=== PATIENT | female | born 1965 | race Caucasian/White ===

== ENCOUNTER 2017-06-23 15:07 | Day surgery (SDC) | payer OTHER ==
[2017-06-23 15:31] VITALS: BP 121/78; PULSE 75; RESP 20; TEMP 98.2; O2SAT 100
--- NOTE | 2017-06-23 17:52 | RADRPT ---
EXAM DATE/TIME: 06/23/2017 00:00 [facility] COMPARISON : No previous studies available for comparison. INDICATIONS : UFE CONSULT OBJECTIVE: Temperature: 98.2 Heart Rate: 75 Blood Pressure: 121/78 Respiratory: 20 Oximetry: 100 The patient has a roughly one year history of increasingly severe hemorrhage associated with known mu ltiple uterine fibroids. The patient has not been anemic. She has little in the way of bulk related s ymptoms. An ultrasound examination was performed at [facility]. I did not review that study myself, however the report indicates multiple masses of varying sizes throughout the uterus. No adnex al abnormalities. The patient has undergone recent Pap smear and endometrial biopsy performed by Dr. Richardson and these were normal. Treatment options were discussed with Dr. Richardson and I also discussed ris ks, benefits and alternatives to uterine fibroid embolization procedure with the patient. I believe s he is an appropriate candidate for the procedure. She is tentatively scheduled for July 05. Thank you very much to Dr. Urena for asking us to assist in the care of this pleasant woman. Bebo De Souza MD on June 23, 2017 at 17:46 Board Certified Radiologist. This report was verified electronically.
== END 2017-06-23 16:50 | disposition home or self-care (01) ==
LOC: HROP 15:07 → HRIP 15:08 → HROP 16:50
PROVIDERS: ATTEND Obstetrics & Gynecology
DX: D25.1 Intramural leiomyoma of uterus (principal); N92.1 Excessive and frequent menstruation with irregular cycle

== ENCOUNTER 2017-07-05 06:12 | Day surgery (SDC) | payer OTHER ==
[2017-07-05] VITALS (12 sets, daily range): BP systolic 133–181; BP diastolic 73–108; PULSE 65–75; RESP 16–20; TEMP 97.2–98.1; O2SAT 96–99
[~2017-07-05] VITALS: Ht 154.9 cm; Wt 49.0 kg
[2017-07-05] MEDS ORDERED: IODIXANOL 320 MG/ML 50 ML VIAL (for RAD SPEC) I-ARTERIAL ONE (06:13)
[2017-07-05] MEDS ORDERED: NORE0.3513 PO (06:54)
[2017-07-05] MEDS ORDERED: RANI150T PO (06:54)
[2017-07-05] MEDS ORDERED: OMEP20TA93 PO (06:54)
[2017-07-05] MEDS ORDERED: SIMV40TA PO (06:54)
[2017-07-05] MEDS ORDERED: VITA200013 (06:54)
[2017-07-05] MEDS ORDERED: BIOTCAP PO (06:54)
[2017-07-05] MEDS ORDERED: VITA250T3 PO (06:54)
[2017-07-05] MEDS ORDERED: CETI10CH CHEW (06:54)
[2017-07-05] MEDS ORDERED: MAGN500T5 PO (06:54)
[2017-07-05] MEDS ORDERED: FLUT1SPR21 EACH NARE (06:54)
[2017-07-05] MEDS ORDERED: ceFAZolin 2 GM PREMIX 50 ML IV SCH (07:00)
[2017-07-05] MEDS: SODIUM CHLOR 0.9% 1000 ML INJ 1,000 ML IV SCH ×2 (07:00→15:08)
[2017-07-05] MEDS ORDERED: DIAZEPAM 10 MG TAB PO SCH (07:00)
[2017-07-05] MEDS ORDERED: ONDANSETRON HCL 4 MG/2 ML VIAL IV PUSH SCH (07:00)
[2017-07-05] MEDS ORDERED: KETOROLAC TROMETHAMINE 30 MG/ML (IVP) VIAL IV PUSH SCH (07:00)
[2017-07-05 07:30] LABS: AUTOMATED NEUTROPHIL # 6.9 TH/MM3 (1.8-7.7); BASOPHIL # 0.1 TH/MM3 (0-0.2); BASOPHIL % 0.8 % (0.0-2.0); EOSINOPHIL # 0.6 TH/MM3 (0-0.4); EOSINOPHIL % 5.4 % (0.0-4.0); HEMATOCRIT 42.9 % (35.0-46.0); HEMOGLOBIN 14.7 GM/DL (11.6-15.3); LYMPH % 20.1 % (9.0-44.0); LYMPHOCYTE # 2.1 TH/MM3 (1.0-4.8); MEAN CELL VOLUME 91.4 FL (80.0-100.0); MEAN CORPUSCULAR HEMOGLOBIN 31.4 PG (27.0-34.0); MEAN CORPUSCULAR HGB CONC 34.3 % (32.0-36.0); MEAN PLATELET VOLUME 9.2 FL (7.0-11.0); MONO % 7.4 % (0.0-8.0); MONOCYTE # 0.8 TH/MM3 (0-0.9); NEUT % 66.3 % (16.0-70.0); PLATELET COUNT 221 TH/MM3 (150-450); RED BLOOD COUNT 4.69 MIL/MM3 (4.00-5.30); WHITE BLOOD COUNT 10.4 TH/MM3 (4.0-11.0)
[2017-07-05 07:41] LABS: INTERNATIONAL NORMALIZED RATIO 1.2 RATIO; PROTHROMBIN TIME - PATIENT 12.1 SEC (9.8-11.6)
[2017-07-05 07:43] LABS: BICARBONATE 26.1 MEQ/L (21.0-32.0); CALCIUM 8.9 MG/DL (8.5-10.1); CREATININE 0.61 MG/DL (0.50-1.00)
[2017-07-05] MEDS ORDERED: MIDAZOLAM HCL 2 MG/2 ML VIAL ONE (07:45)
[2017-07-05] MEDS ORDERED: ceFAZolin 2 GM in NS 100 ML IV SCH (07:45)
[2017-07-05] MEDS ORDERED: fentaNYL CITRATE 250 MCG/5 ML AMP ONE (07:46)
[2017-07-05] MEDS ORDERED: HYDROmorphone HCL PF 2 MG/ML VIAL ONE (10:05)
[2017-07-05] MEDS ORDERED: ACETAMINOPHEN 325 MG TAB PO PRN ×2 (10:15→11:30)
[2017-07-05] MEDS ORDERED: NALOXONE HCL 0.4 MG/ML AMP IV PUSH PRN ×2 (10:15→11:30)
[2017-07-05] MEDS ORDERED: diphenhydrAMINE HCL 50 MG/ML VIAL IV PUSH PRN (10:15)
[2017-07-05] MEDS ORDERED: diphenhydrAMINE HCL 25 MG CAP PO PRN (10:15)
[2017-07-05] MEDS ORDERED: ONDANSETRON HCL 4 MG/2 ML VIAL IV PUSH PRN (10:15)
[2017-07-05] MEDS: LEVOFLOXACIN 500 MG PREMIX INJ 100 ML IV SCH (11:00)
[2017-07-05] MEDS: HYDROmorphone HCL PCA 6 MG/30 ML IV SCH ×2 (11:13→21:40)
[2017-07-05] MEDS ORDERED: TEMAZEPAM 15 MG CAP PO PRN (11:30)
[2017-07-05] MEDS ORDERED: MAGNESIUM HYDROXIDE SUSP 30 ML CUP PO PRN (11:30)
[2017-07-05] MEDS ORDERED: ONDANSETRON HCL 4 MG/2 ML VIAL IVP PRN (11:30)
[2017-07-05] MEDS ORDERED: SODIUM CHLORIDE 0.9% FLUSH 10 ML FLUSH IV FLUSH PRN (11:30)
--- NOTE | 2017-07-05 11:42 | HHI.HP ---
HPI Service [facility] Hospitalists Primary Care Physician Paul Hill D.O. Admission Diagnosis Chief Complaint: dysfunctional uterine bleeding Travel History International Travel<30 Days: No Contact w/Intl Traveler <30 Da: No Traveled to Known Affected Are: No History of Present Illness Patient is a pleasant 51-year-old female with history of hyperlipidemia, GERD, chronic tobacco use, and dysfunctional uterine bleeding due to fibroids. Patient underwent uterine artery embolization today in the interventional radiology department performed by Dr. Bebo De Souza. Overnight observation on the medical service was requested for symptom management. Review of Systems Constitutional: DENIES: Diaphoretic episodes, Fatigue, Fever, Weight gain, Weight loss, Chills, Dizziness, Change in appetite, Night Sweats Endocrine: COMPLAINS OF: Abnorml menstrual pattern, DENIES: Heat/cold intolerance, Polydipsia, Polyuria, Polyphagia Eyes: DENIES: Blurred vision, Diplopia, Eye inflammation, Eye pain, Vision loss , Photosensitivity, Double Vision Ears, nose, mouth, throat: DENIES: Tinnitus, Hearing loss, Vertigo, Nasal discharge, Oral lesions, Throat pain, Hoarseness, Ear Pain, Running Nose, Epistaxis, Sinus Pain, Toothache, Odynophagia Respiratory: DENIES: Apneas, Cough, Snoring, Wheezing, Hemoptysis, Sputum production, Shortness of breath Cardiovascular: DENIES: Chest pain, Palpitations, Syncope, Dyspnea on Exertion , PND, Lower Extremity Edema, Orthopnea, Claudication Gastrointestinal: DENIES: Abdominal pain, Black stools, Bloody stools, BRB per rectum, Constipation, Diarrhea, GERD, Nausea, Reflux, Vomiting, Difficulty Swallowing, Anorexia Genitourinary: COMPLAINS OF: Abnormal vaginal bleeding, DENIES: Dysmenorrhea, Dyspareunia, Urinary frequency, Urinary incontinence, Urgency, Hematuria, Dysuria, Nocturia Musculoskeletal: DENIES: Joint pain, Muscle aches, Stiffness, Joint Swelling, Back pain, Neck pain Integumentary: DENIES: Abnormal pigmentation, Pruritus, Rash, Nail changes, Breast masses, Breast skin changes, Nipple discharge Hematologic/lymphatic: DENIES: Bruising, Lymphadenopathy Immunologic/allergic: DENIES: Eczema, Urticaria Neurologic: DENIES: Abnormal gait, Headache, Localized weakness, Paresthesias, Seizures, Speech Problems, Tremor, Poor Balance Psychiatric: DENIES: Anxiety, Confusion, Mood changes, Depression, Hallucinations, Agitation, Suicidal Ideation, Homicidal Ideation, Delusions, History of Bipolar, History of Schizophrenia Past Family Social History Past Medical History 1) dysfunctional uterine bleeding secondary to uterine fibroids 2) GERD 3) hyperlipidemia 4) allergic rhinitis 5) tobaccoism Past Surgical History 1) breast lumpectomy 2) EGD 3) surgical correction of jaw fracture 4) surgical treatment of patellar fracture Reported Medications Reported Meds & Active Scripts Active Reported Biotin 5 Mg Cap 5 Mg PO Magnesium Gluconate 27 Mg (500 Mg) Tab 500 Mg PO DAILY Vitamin C (Ascorbic Acid) 250 Mg Tab 500 Mg PO Cetirizine (Cetirizine HCl) 10 Mg Chew 10 Mg CHEW DAILY Vitamin D (Cholecalciferol) 2,000 Unit Cap Clarispray Nasal [place] (Fluticasone Nasal [place]) 50 Mcg/Act [place] 1 [place] EACH NARE BID Juana-35 (Norethindrone) 0.35 Mg Tab 1 Tab PO DAILY Ranitidine (Ranitidine HCl) 150 Mg Tab 150 Mg PO BID Omeprazole 20 Mg Tab 20 Mg PO BID Simvastatin 40 Mg Tab 40 Mg PO HS Allergies: Coded Allergies: Sulfa (Sulfonamide Antibiotics) (Verified Allergy, Severe, Flu like symptoms, 07/05/17) Family History Noncontributory Social History - Patient is a current smoker - Patient denies alcohol use - Patient denies use of illicit street drugs Physical Exam Vital Signs Vital Signs Date Time Temp Pulse Resp B/P (MAP) Pulse Ox O2 Delivery O2 Flow Rate FiO2 07/05/17 11:13 16 07/05/17 11:00 68 16 159/102 (121) 98 07/05/17 10:35 68 16 161/101 (121) 98 07/05/17 10:20 68 16 163/102 (122) 98 07/05/17 10:05 69 16 168/103 (124) 98 07/05/17 09:50 97.9 71 16 181/108 (132) 98 07/05/17 07:01 Room Air 07/05/17 06:43 98.1 72 20 140/88 (105) 99 Physical Exam GENERAL: This is a well-nourished, well-developed patient, in no apparent distress. SKIN: No rashes, ecchymoses or lesions. Cool and dry. HEAD: Atraumatic. Normocephalic. No temporal or scalp tenderness. EYES: Pupils equal round and reactive. Extraocular motions intact. No scleral icterus. No injection or drainage. ENT: Nose without bleeding, purulent drainage or septal hematoma. Throat without erythema, tonsillar hypertrophy or exudate. Uvula midline. Airway patent. NECK: Trachea midline. No JVD or lymphadenopathy. Supple, nontender, no meningeal signs. CARDIOVASCULAR: Regular rate and rhythm without murmurs, gallops, or rubs. RESPIRATORY: Clear to auscultation. Breath sounds equal bilaterally. No wheezes , rales, or rhonchi. GASTROINTESTINAL: Abdomen soft, non-tender, nondistended. No hepato-splenomegaly , or palpable masses. No guarding. MUSCULOSKELETAL: Extremities without clubbing, cyanosis, or edema. No joint tenderness, effusion, or edema noted. No calf tenderness. Negative Homans sign bilaterally. NEUROLOGICAL: Awake and alert. Cranial nerves II through XII intact. Motor and sensory grossly within normal limits. Five out of 5 muscle strength in all muscle groups. Normal speech. Laboratory Laboratory Tests Test 07/05/17 07:00 White Blood Count 10.4 Red Blood Count 4.69 Hemoglobin 14.7 Hematocrit 42.9 Mean Corpuscular Volume 91.4 Mean Corpuscular Hemoglobin 31.4 Mean Corpuscular Hemoglobin Concent 34.3 Red Cell Distribution Width 13.0 Platelet Count 221 Mean Platelet Volume 9.2 Neutrophils (%) (Auto) 66.3 Lymphocytes (%) (Auto) 20.1 Monocytes (%) (Auto) 7.4 Eosinophils (%) (Auto) 5.4 Basophils (%) (Auto) 0.8 Neutrophils # (Auto) 6.9 Lymphocytes # (Auto) 2.1 Monocytes # (Auto) 0.8 Eosinophils # (Auto) 0.6 Basophils # (Auto) 0.1 CBC Comment DIFF FINAL Differential Comment Prothrombin Time 12.1 Prothromb Time International Ratio 1.2 Activated Partial Thromboplast Time 25.0 Blood Urea Nitrogen 14 Creatinine 0.61 Random Glucose 86 Calcium Level 8.9 Sodium Level 141 Potassium Level 3.8 Chloride Level 107 Carbon Dioxide Level 26.1 Anion Gap 8 Estimat Glomerular Filtration Rate 103 Result Diagram: 07/05/17 0700 07/05/17 0700 Caprini VTE Risk Assessment Caprini VTE Risk Assessment: No/Low Risk (score <= 1) Caprini Risk Assessment Model Point Value = 1 Point Value = 2 Point Value = 3 Point Value = 5 Age 41-60 Minor surgery BMI > 25 kg/m2 Swollen legs Varicose veins or History of unexplained or recurrent spontaneous Oral contraceptives or hormone replacement Sepsis (< 1 month) Serious lung disease, including pneumonia (< 1 month) Abnormal pulmonary function Acute myocardial infarction Congestive heart failure (< 1 month) History of inflammatory bowel disease Medical patient at bed rest Age 61-74 Arthroscopic surgery Major open surgery (> 45 min) Laparoscopic surgery (> 45 min) Malignancy Confined to bed (> 72 hours) Immobilizing plaster cast Central venous access Age >= 75 History of VTE Family history of VTE Factor V Leiden Prothrombin [id number] Lupus anticoagulant Anticardiolipin antibodies Elevated serum homocysteine Heparin-induced thrombocytopenia Other congenital or acquired thrombophilia Stroke (< 1 month) Elective arthroplasty Hip, pelvis, or leg fracture Acute spinal cord injury (< 1 month) Prophylaxis Regimen Total Risk Factor Score Risk Level Prophylaxis Regimen 0-1 Low Early ambulation 2 Moderate Order ONE of the following: *Sequential Compression Device (SCD) *Heparin 5000 units SQ BID 3-4 Higher Order ONE of the following medications: *Heparin 5000 units SQ TID *Enoxaparin/Lovenox 40 mg SQ daily (WT < 150 kg, CrCl > 30 mL/min) *Enoxaparin/Lovenox 30 mg SQ daily (WT < 150 kg, CrCl > 10-29 mL/min) *Enoxaparin/Lovenox 30 mg SQ BID (WT < 150 kg, CrCl > 30 mL/min) AND/OR *Sequential Compression Device (SCD) 5 or more Highest Order ONE of the following medications: *Heparin 5000 units SQ TID (Preferred with Epidurals) *Enoxaparin/Lovenox 40 mg SQ daily (WT < 150 kg, CrCl > 30 mL/min) *Enoxaparin/Lovenox 30 mg SQ daily (WT < 150 kg, CrCl > 10-29 mL/min) *Enoxaparin/Lovenox 30 mg SQ BID (WT < 150 kg, CrCl > 30 mL/min) AND *Sequential Compression Device (SCD) Assessment and Plan Problem List: (1) DUB (dysfunctional uterine bleeding) ICD Codes: N93.8 - Other specified abnormal uterine and vaginal bleeding Status: Acute Plan: - Patient underwent uterine artery embolization performed (07/05/17) by interventional radiology, Dr. Bebo De Souza. - Overnight observation as requested by the medical team for symptom management - Will obtain repeat CBC in a.m. 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 07/06 - norco/diluadid prn pain - DVT prophylaxis - supportive care - anticipate discharge to home 07/06/17 (2) GERD (gastroesophageal reflux disease) ICD Codes: K21.9 - Gastro-esophageal reflux disease without esophagitis Status: Chronic Plan: - continue ranitidine and PPI (3) Hyperlipidemia ICD Codes: E78.5 - Hyperlipidemia, unspecified Status: Chronic Plan: - continue statin therapy (4) Tobacco abuse ICD Codes: Z72.0 - Tobacco use Status: Chronic Plan: - Pt counselled on importance smoking cessation Problem Qualifiers (1) GERD (gastroesophageal reflux disease): Qualified Codes: K21.9 - Gastro-esophageal reflux disease without esophagitis (2) Hyperlipidemia: Qualified Codes: E78.5 - Hyperlipidemia, unspecified Umesh Joe DO Jul 05, 2017 11:42
[2017-07-05] MEDS: LEVOFLOXACIN 500 MG TAB PO SCH (13:43)
--- NOTE | 2017-07-05 14:58 | EKG ---
Date Performed: 07/05/2017 Time Performed: 11:48:09 PTAGE: 51 years EKG: Sinus rhythm NORMAL ECG NO PREVIOUS TRACING DOCTOR: Jian Cao Interpretating Date/Time 07/05/2017 14:56:54
[2017-07-05] MEDS: KETOROLAC TROMETHAMINE 30 MG/ML (IVP) VIAL IVP SCH ×2 (15:00→20:22)
[2017-07-05] MEDS: KETOROLAC TROMETHAMINE 10 MG TAB PO SCH ×2 (15:07→20:15)
[2017-07-05] MEDS: PCA - TOTAL MG DILAUDID DELIVERED PER SHIFT OTHER SCH ×2 (15:08→21:41)
--- NOTE | 2017-07-05 16:34 | RADRPT ---
EXAM DATE/TIME: 07/05/2017 08:08 [facility] COMPARISON: No previous studies available for comparison. INDICATIONS : Patient with a history of uterine fibroid tumors. MEDICAL HISTORY : Intramural leiomyoma of uterus SURGICAL HISTORY : None ENCOUNTER: Initial ACUITY: 1 month PAIN SCORE: 0/10 FLUORO TIME: 23.9 minutes IMAGE SERIES: 15 ACCESS SITE: Right Femoral artery SEDATION TIME: 90 minutes CONTRAST: 1.) 120 cc Visipaque (iodixanol) MEDICATION(S): 1.) 4 mg midazolam (Versed) IV 2.) 250 mcg fentanyl (Sublimaze) IV Prophylactic antibiotics were administered with appropriate pre-procedure timing. DEVICE(S): 1.) Bilateral uterine artery 355-500 PVA 2.) Bilateral uterine artery Gelfoam 3.) Right common femoral artery Starclose PROCEDURE : 1. Ultrasound-guided puncture of the right common femoral artery access site. 2. Angiography of the right common femoral artery access site prior to closure device. 3. Conscious sedation with continuous EKG and Oximetry monitoring. 4. Percutaneous closure of the right common femoral artery access site. 5. non-selective aortic catheterization and aortography 6. selective catheterization, left uterine artery 7. left uterine arteriography 8. Transcatheter embolization. 9. Followup arteriography post embolization, left internal iliac artery 10. Selective catheterization, right uterine artery 11. Selective right uterine arteriography 12. Followup arteriography postembolization, right uterine artery TECHNIQUE: The risks, benefits and alternatives to uterine artery embolization were explained to the patient in detail, and lay terms and verbal and written informed consent was obtained. The patient was placed kumar pine on the angiography table. The right groin was prepped in sterile fashion. Full sterile technique was used, including cap, mask, sterile gloves and gown and a large sterile sheet. Hand hygiene and 2 % chlorhexidine and/or betadine/alcohol prep was utilized per protocol for cutaneous antisepsis. The skin and subcutaneous tissues were infiltrated with lidocaine solution. Under direct ultrasound garry nce, micropuncture access was accomplished and the right common femoral artery and a 4 Wallisian vascula r sheath was placed. Sterile U/S probe cover and sterile U/S gel was utilized. The ultrasound images depicting access guidance were saved and stored to PACS for permanent record. A 4 Wallisian Omni flush catheter was inserted and positioned in the low abdominal aorta. Digital subtra ction pelvic arteriography was performed. The Omni Flush catheter was used to select over the aortic bifurcation and was manipulated down into the contralateral left internal iliac. With the aid of road mapping guidance, an angled Glidewire was manipulated into the left uterine artery. A 4 Wallisian Cobra catheter followed without difficulty and was positioned in the inferior horizontal portion of the ut erine artery. Subselective left uterine arteriography was performed. Embolization was accomplished us ing 350-500 PVA particles to complete occlusion of the vessel. Followup arteriography performed in the internal iliac revealed complete occlusion of the uterine artery with good preservation of flow i n the other anterior division branches. Attention was then turned to catheterization of the ipsilateral right internal iliac. The internal il iac artery was selectively evaluated and no right uterine artery is identified arising from the pelvi c vessels. For this reason, the Omni Flush catheter was reinserted and manipulated into the upper abd ominal aorta. Digital subtraction abdominal aortography was performed. The uterine artery was found t o arise from the upper abdominal aorta just below level of the right renal artery. The uterine artery was selectively catheterized and evaluated with DSA. Right uterine artery embolization was accomplis hed in a similar fashion and a followup arteriography revealed an excellent result with total occlusi on of the vessel and no complication. Sheath arteriography was performed to evaluate the right common femoral artery for arteriotomy closur e. The sheath was removed and the arteriotomy was closed with the Starclose device. The patient wilber ated the procedure well and was taken to the recovery area in good stable condition. FINDINGS: The abdominal aorta and iliacs are widely patent. Widely patent renal arteries are present bilaterall y. The left uterine artery was found to arise in standard fashion from the anterior division of the l eft internal iliac artery. The right uterine artery was found to arise from the upper abdominal aorta just below level of the right renal artery. No gonadal feeders were identified on either side. Embol ization was accomplished bilaterally as described in detail above. CONCLUSION: Uncomplicated bilateral uterine artery embolization for symptomatic fibroids as described in detail above. Bebo De Souza MD on July 05, 2017 at 16:24 Board Certified Radiologist. This report was verified electronically.
[2017-07-05] MEDS ORDERED: ENALAPRILAT 1.25 MG/ML VIAL IV PUSH PRN (18:00)
[2017-07-05] MEDS: FAMOTIDINE 20 MG TAB PO SCH (20:14)
[2017-07-05] MEDS: PANTOPRAZOLE SOD 20 MG DELAYED RELEASE TAB PO SCH (20:15)
[2017-07-05] MEDS: SODIUM CHLORIDE 0.9% FLUSH 10 ML FLUSH IV FLUSH SCH (21:00)
[2017-07-05] MEDS ORDERED: PRAVASTATIN SOD 80 MG TAB PO SCH (21:00)
[2017-07-06] VITALS: BP 160/69; PULSE 75; RESP 16; TEMP 97.2; O2SAT 94
[2017-07-06] MEDS: SODIUM CHLOR 0.9% 1000 ML INJ 1,000 ML IV SCH (03:00)
[2017-07-06] MEDS: KETOROLAC TROMETHAMINE 30 MG/ML (IVP) VIAL IVP SCH ×2 (03:00→07:45)
[2017-07-06] MEDS: KETOROLAC TROMETHAMINE 10 MG TAB PO SCH ×2 (03:13→07:45)
[2017-07-06 04:00] VITALS: BP 155/62; PULSE 70; RESP 16; TEMP 97; O2SAT 92
[2017-07-06] MEDS: PCA - TOTAL MG DILAUDID DELIVERED PER SHIFT OTHER SCH ×2 (06:00→09:32)
[2017-07-06 06:22] LABS: AUTOMATED NEUTROPHIL # 10.2 TH/MM3 (1.8-7.7); BASOPHIL # 0.1 TH/MM3 (0-0.2); BASOPHIL % 0.9 % (0.0-2.0); EOSINOPHIL # 0.5 TH/MM3 (0-0.4); EOSINOPHIL % 3.1 % (0.0-4.0); LYMPH % 19.1 % (9.0-44.0); LYMPHOCYTE # 2.9 TH/MM3 (1.0-4.8); MEAN CELL VOLUME 91.4 FL (80.0-100.0); MEAN CORPUSCULAR HEMOGLOBIN 31.1 PG (27.0-34.0); MEAN PLATELET VOLUME 9.7 FL (7.0-11.0); MONO % 8.6 % (0.0-8.0); MONOCYTE # 1.3 TH/MM3 (0-0.9); NEUT % 68.3 % (16.0-70.0); PLATELET COUNT 226 TH/MM3 (150-450); RED BLOOD COUNT 4.82 MIL/MM3 (4.00-5.30); RED CELL DISTRIBUTION WIDTH 12.6 % (11.6-17.2); WHITE BLOOD COUNT 14.9 TH/MM3 (4.0-11.0)
[2017-07-06 06:34] LABS: CALCIUM 8.5 MG/DL (8.5-10.1); CREATININE 0.7 MG/DL (0.50-1.00)
[2017-07-06] MEDS: FAMOTIDINE 20 MG TAB PO SCH (07:45)
[2017-07-06] MEDS: PANTOPRAZOLE SOD 20 MG DELAYED RELEASE TAB PO SCH (07:45)
[2017-07-06] MEDS: LEVOFLOXACIN 500 MG PREMIX INJ 100 ML IV SCH (07:45)
[2017-07-06] MEDS: SODIUM CHLORIDE 0.9% FLUSH 10 ML FLUSH IV FLUSH SCH (07:45)
[2017-07-06 08:00] VITALS: BP 137/76; PULSE 60; RESP 17; TEMP 98; O2SAT 99
--- NOTE | 2017-07-06 08:24 | HHI.DS ---
Discharge Summary Admission Date 07/05/17 Discharge Date: Jul 06, 2017 Admitting Diagnosis Dysfunctional uterine bleeding, Uterine fibroid embolization (1) DUB (dysfunctional uterine bleeding) Diagnosis: Principal ICD Codes: N93.8 - Other specified abnormal uterine and vaginal bleeding Status: Acute (2) GERD (gastroesophageal reflux disease) Diagnosis: Secondary ICD Codes: K21.9 - Gastro-esophageal reflux disease without esophagitis Status: Chronic (3) Hyperlipidemia Diagnosis: Secondary ICD Codes: E78.5 - Hyperlipidemia, unspecified Status: Chronic (4) Tobacco abuse Diagnosis: Secondary ICD Codes: Z72.0 - Tobacco use Status: Chronic Consultants Dr. Heath De Souza Procedures bilateral uterine artery embolization for symptomatic fibroids 07/05/[address] De Suoza Brief History Patient is a pleasant 51-year-old female with history of hyperlipidemia, GERD, chronic tobacco use, and dysfunctional uterine bleeding due to fibroids. Patient underwent uterine artery embolization today in the interventional radiology department performed by Dr. Bebo De Souza. Overnight observation on the medical service was requested for symptom management. CBC/BMP: 07/06/17 0542 07/06/17 0542 Significant Findings Laboratory Tests Test 07/05/17 07:00 07/06/17 05:42 Eosinophils (%) (Auto) 5.4 % (0.0-4.0) Eosinophils # (Auto) 0.6 TH/MM3 (0-0.4) 0.5 TH/MM3 (0-0.4) Prothrombin Time 12.1 SEC (9.8-11.6) White Blood Count 14.9 TH/MM3 (4.0-11.0) Monocytes (%) (Auto) 8.6 % (0.0-8.0) Neutrophils # (Auto) 10.2 TH/MM3 (1.8-7.7) Monocytes # (Auto) 1.3 TH/MM3 (0-0.9) Sodium Level 135 MEQ/L (136-145) Potassium Level 3.4 MEQ/L (3.5-5.1) Estimat Glomerular Filtration Rate 88 ML/MIN (>89) Imaging Last Impressions Embolization, Transcatheter 07/05/17 0000 Signed Impressions: Service Date/Time: Wednesday, July 05, 2017 08:08 - CONCLUSION: Uncomplicated bilateral uterine artery embolization for symptomatic fibroids as described in detail above. Bebo De Souza MD PE at Discharge GENERAL: This is a well-nourished, well-developed patient, in no apparent distress. CARDIOVASCULAR: Regular rate and rhythm without murmurs, gallops, or rubs. RESPIRATORY: Clear to auscultation. Breath sounds equal bilaterally. No wheezes , rales, or rhonchi. GASTROINTESTINAL: Abdomen soft, non-tender, nondistended. Normal active bowel sounds MUSCULOSKELETAL: Extremities without clubbing, cyanosis, or edema. NEURO: Alert & Oriented x4 to person, place, time, situation. Moves all ext x4 Hospital Course DUB (dysfunctional uterine bleeding) - Patient underwent uterine artery embolization performed (07/05/17) by interventional radiology, Dr. Bebo De Souza. - Overnight observation as requested for symptom management - repeat CBC this a.m. revealed stable H&H - norco/diluadid prn pain - DVT prophylaxis - supportive care GERD (gastroesophageal reflux disease) - continue ranitidine and PPI Hyperlipidemia - continue statin therapy Tobacco abuse - Pt counselled on importance smoking cessation Elevated BP Patient had elevated BP with in the hospital possibly related to pain patient to keep BP log at home and follow up with PCP for further evaluation and management of BP Hypokalemia Potassium 3.4 (07/06) replaced Patient cleared by IR and PROCESS MAINTENANCE TECHNICIAN Prescriptions for Levaquin 500 mg PO daily x 7 days Toradol 10 mg Q6H PO PRN mild pain x 5 days Zofran 4 mg PO Q6H PRN n/v written by IR Dysuria Patient reports burning/pain with urination Patient DC on Levaquin per IR UA with reflex culture requested patient to follow up on Urine culture results with Dr. Urena Pt Condition on Discharge: Stable Discharge Disposition: Discharge Home Discharge Instructions DIET: Follow Instructions for: Heart Healthy Diet Activities you can perform: See Additionl Instruction Other Activity Instructions: Activity per interventional radiology Follow up Referrals: PROCESS MAINTENANCE TECHNICIAN - 1 Week with Bebo Urena MD PCP Follow-up - [address] Hill Continued Medications: Ascorbic Acid (Vitamin C) 250 Mg Tab 500 MG PO for Nutritional Supplement, TAB 0 Refills Biotin (Biotin) 5 Mg Cap 5 MG PO for Nutritional Supplement, #1 BOTTLE 0 Refills Cetirizine (Cetirizine) 10 Mg Chew 10 MG CHEW DAILY for Allergies, TAB 0 Refills Cholecalciferol (Vitamin D) 2,000 Unit Cap CAP Fluticasone Nasal [place] (Clarispray Nasal [place]) 50 Mcg/Act [place] 1 SPRAY EACH NARE BID for Allergy Management, #1 BOTTLE 0 Refills Magnesium Gluconate (Magnesium Gluconate) 27 Mg (500 Mg) Tab 500 MG PO DAILY for Nutritional Supplement, TAB 0 Refills Norethindrone (Juana-35) 0.35 Mg Tab 1 TAB PO DAILY for Control, #1 PACK 0 Refills Omeprazole (Omeprazole) 20 Mg Tab 20 MG PO BID, #30 TAB 0 Refills Ranitidine (Ranitidine) 150 Mg Tab 150 MG PO BID for Heartburn Management, #60 TAB 0 Refills Simvastatin (Simvastatin) 40 Mg Tab 40 MG PO HS for Cholesterol Management, #30 TAB 0 Refills Additional Information Patient examined. Assessment and plan formulated with Olamide Mueller PA-C. I agree with the above. Olamide Mueller Jul 06, 2017 08:24 Umesh Joe DO Jul 06, 2017 11:56
--- NOTE | 2017-07-06 08:24 | HHI.DCPOC ---
Discharge Care Plan Diagnosis: (1) DUB (dysfunctional uterine bleeding) (2) GERD (gastroesophageal reflux disease) (3) Tobacco abuse (4) Hyperlipidemia Goals to Promote Your Health * To prevent worsening of your condition and complications * To maintain your health at the optimal level Directions to Meet Your Goals Take your medications as prescribed Follow your dietary instruction Follow activity as directed Keep your appointments as scheduled Take your immunizations and boosters as scheduled If your symptoms worsen call your PCP, if no PCP go to Urgent Care Center or Emergency Room Smoking is Dangerous to Your Health. Avoid second hand smoke Call the 24-hour hour crisis hotline for domestic abuse at Olamide Mueller Jul 06, 2017 08:24 Umesh Joe DO Jul 06, 2017 11:55
[2017-07-06] MEDS ORDERED: POTASSIUM CHLORIDE 20 MEQ CONTROLLED RELEASE TAB PO ONE ×2 (08:30→10:45)
[2017-07-06] MEDS: LEVOFLOXACIN 500 MG TAB PO SCH (09:31)
[2017-07-06] MEDS ORDERED: NORC5TAB PO (10:35)
[2017-07-06 12:00] VITALS: BP 134/82; PULSE 66; RESP 18; TEMP 98.1; O2SAT 98
[2017-07-06 12:19] LABS: BILIRUBIN, URINE NEG (NEG); BLOOD, URINE NEG (NEG); GLUCOSE,URINE NEG (NEG); HYALINE CAST, URINE 2 /lpf (RARE); KETONE, URINE NEG (NEG); NITRITE,URINE NEG (NEG); URINE COLOR LIGHT-YELLOW (YELLW/STRAW); URINE LEUKOCYTE ESTERASE NEG (NEG)
== END 2017-07-06 12:54 | disposition home or self-care (01) ==
LOC: HROP 06:12 → HRIP 06:17 → N07A 15:02 → HROP 07-06 12:54
PROVIDERS: ATTEND Obstetrics & Gynecology
DX: D25.9 Leiomyoma of uterus, unspecified (principal); N93.8 Other specified abnormal uterine and vaginal bleeding; E78.5 Hyperlipidemia, unspecified; K21.9 Gastro-esophageal reflux disease without esophagitis; E87.6 Hypokalemia; I10 Essential (primary) hypertension; F17.200 Nicotine dependence, unspecified, uncomplicated
CPT/HCPCS: 36247; 37243; 75736; 76937; 80048; 81001; 85025; 85610; 85730; 93005; C1760; C1769; C1887; C1894; G0269; J0690; J1170; J1885; J2250; J2405; J3010; J7030; Q9967